=== PATIENT | male | born 1970 | race Caucasian/White ===

== ENCOUNTER 2017-02-07 10:03 | Day surgery (SDC) | payer SELFPAY ==
[2017-02-07 10:29] LABS: #Lymphocytes 1.2 thou/uL (1.20-3.40); #Monocytes 0.8 thou/uL (0.11-0.59); #Neutrophils 6.6 thou/uL (1.40-6.50); %Basophils 0.5 % (0.0-1.0); %Eosinophils 0.3 % (0.0-10.0); %Monocytes 8.7 % (0.0-10.0); Hematocrit 46.1 % (42.0-52.0); Mean Platelet Volume 7.4 fL (7.4-10.4); Red Blood Cell (RBC) Count 4.99 mill/uL (4.70-6.10); White Blood Cell (WBC) Count 8.7 thou/uL (4.8-10.8)
[2017-02-07 10:44] LABS: ALT (SGPT) 23 U/L (8-55); AST (SGOT) 17 U/L (5-34); Alkaline Phosphatase 75 U/L (40-150); Anion Gap 12 mmol/L (10-20); BUN (Urea Nitrogen) 15 mg/dL (8.9-20.6); Bilirubin, Total 1.2 mg/dL (0.2-1.2); Calc. Creatinine Clearance 0 mL/min (70-130); Calcium 9.3 mg/dL (7.8-10.44); Carbon Dioxide 25 mmol/L (22-29); Chloride 106 mmol/L (98-107); Estimated GFR-MDRD 43; Protein, Total 7.2 g/dL (6.0-8.3)
[2017-02-07 10:50] LABS: Lipase Less than 4 U/L (8-78)
[2017-02-07] MEDS ORDERED: Morphine Sulfate 2 MG/ML SYRINGE ONE ×2 (11:09→11:24)
[2017-02-07 12:36] LABS: Bilirubin Negative (Negative); Blood, Urine Small (Negative); Glucose, Urine (Dipstick) Negative (Negative); Ketone, Urine Negative (Negative); Nitrite Negative (Negative); Protein, Urine (Dipstick) Negative (Neg-Trace); Urobilinogen 0.2 mg/dL (0.2-1.0)
[2017-02-07 13:19] LABS: Bacteria/HPF None Seen HPF (None Seen); RBC/HPF 0-3 HPF (0-3); Squamous Epithelial None Seen HPF (0-3); WBC/HPF None Seen HPF (0-3)
--- NOTE | 2017-02-07 14:14 | CT ---
CT ABDOMEN WITH CONTRAST CT PELVIS WITH CONTRAST: DATE: 02/07/2017 HISTORY: A 46-year-old male with right lower quadrant abdominal pain, nausea, emesis, and anorexia. TECHNIQUE: IV injection of iodinated contrast media: Isovue 370. Oral contrast media: Administered. FINDINGS: There is a 7 x 4 x 5 mm calculus lodged in right proximal ureter, at the L3-L4 level, causing mild t o moderate right hydronephrosis. There is a slightly delayed right nephrogram, compared to the left . There are no calculi within the kidneys, or in the urinary bladder. The appendix has mural thick ening, no intraluminal contrast material, and is dilated to 11 mm caliber. However, there is no madelyn appendiceal fat stranding. No extraluminal gas. No signs of acute colonic diverticulitis. No asci gosia. The abdominal aorta , liver, pancreas, adrenals, and spleen are normal. No small bowel dilatio n. Small sliding hiatal hernia. IMPRESSION: 1. Right obstructive uropathy. A 7 mm calculus lodged in the right proximal ureter, causing a ophelia yed right nephrogram and mild to moderate right hydronephrosis. 2. Findings are equivocal for a concomitant acute appendicitis. Followup and clinical correlation are recommended. RIKKI Hernandez POS: JOSETTE
[2017-02-07] MEDS ORDERED: Promethazine HCl 25 MG/ML VIAL ONE (16:18)
[2017-02-07] MEDS ORDERED: Fentanyl 100 MCG/2 ML VIAL ONE (16:18)
[2017-02-07] MEDS ORDERED: Midazolam HCl 2 mg/2 ml Vial ONE (16:18)
[2017-02-07] MEDS ORDERED: Iopamidol 370 76% 100 ML VIAL ONE (16:30)
[2017-02-07] MEDS ORDERED: Iothalamate Meglumine 60% 50 ML VIAL FS ONE ×2 (16:33)
[2017-02-07] MEDS ORDERED: Lidocaine 2% Jelly 5 ML TUBE ONE (16:36)
[2017-02-07] MEDS ORDERED: Propofol 200 MG/20 ML VIAL ONE (17:02)
[2017-02-07] MEDS ORDERED: Ondansetron HCl/PF 4 MG/2 ML Vial ONE (17:02)
[2017-02-07] MEDS ORDERED: Glycopyrrolate 0.2 MG/ML 5 ML SYRINGE ONE (17:02)
[2017-02-07] MEDS ORDERED: Dexamethasone 20 MG/5 ML VIAL ONE (17:02)
[2017-02-07] MEDS ORDERED: Lidocaine 1% PF 5 ML VIAL ONE (17:02)
--- NOTE | 2017-02-07 20:41 | RAD ---
RIGHT RETROGRADE PYELOGRAM: 02/07/17 HISTORY: Stent placement. FINDINGS/IMPRESSION: There is a urinary catheter in the right ureter with tip at the level of L2 level. There is contrast in the pelvicaliceal system and right ureter. There is suggestion of a calculus in the ureter at L2 level medial to the catheter. There is contrast in the right colon. POS: ALMAS
--- NOTE | 2017-02-08 06:12 | CON ---
DATE OF CONSULTATION: 02/07/2017 HISTORY OF PRESENT ILLNESS: This is a 46-year-old white male who I was asked to see today on the , through the emergency room doctor. He has had 4 days of right-sided abdominal and flank p ain, more in the axillary line and flank, has not been able to get comfortable with it, nausea and v omiting associated with it. No fevers, chills. No gross hematuria, no dysuria. He has had stones twice before, the last was 10 years ago. Two years ago, he had a CAT scan done that showed two ston es in his right kidney and none in his ureter and it is possible that he may have passed a stone at that time. This CAT scan shows a 7 mm stone in his proximal ureter with dilated calices above it. There was concern about possible appendicitis, although his white count is normal. He is moving jessica und with this pain and not trying to find a position of comfort. I think his pain is probably most consistent with a stone. ALLERGIES: He has no known drug allergies. MEDICATIONS: He takes vitamins only. PAST SURGICAL HISTORY: Bilateral hernia repair as an . PAST MEDICAL HISTORY: Negative. SOCIAL HISTORY: He does not smoke, does not drink. He is . PHYSICAL EXAMINATION: HEENT: Negative. NECK: Negative. LUNGS: Clear. CARDIAC: Without murmur. ABDOMEN: Soft. There is some mild right-sided abdominal tenderness, without rebound or guarding. He does have right CVA tenderness. EXTREMITIES: Negative. GENITOURINARY: He is circumcised. Testicles descended without mass or tenderness. IMPRESSION: Right proximal ureteral stone with pain in colic, unable to get the patient comfortable in the emergency center. PLAN: Emergent cystoscopy and right stent.
--- NOTE | 2017-02-08 06:52 | OP ---
DATE OF PROCEDURE: 02/07/2017 PREOPERATIVE DIAGNOSIS: Right proximal ureteral stone. POSTOPERATIVE DIAGNOSIS: Right proximal ureteral stone. PROCEDURE PERFORMED: Cystoscopy, right retrograde, right stent. SURGEON: Dr. Llanos. ANESTHETIC: General. ESTIMATED BLOOD LOSS: Not recorded. FINDINGS: There is no evidence of urethral stricture disease, small prostate, bladder with two uret eral orifices. No tumor, foreign body, or stone. Proximal right ureteral stone, could not see the stone on the air pollution compliance inspector film, but there was contrast still hanging up from his prior CT scan. There was also obstruction here to attempted passage with a guidewire, requiring an angle tipped Glidewire. DRAINS PLACED: Six 26 Polaris double-J stent without a string attached. PROCEDURE IN DETAIL: After obtaining written and verbal consent from the patient, after receiving I V Ancef, he was taken to the operating suite. He was placed in the supine position on the treatment table. PlexiPulses were placed on his lower extremities and turned on. He was given a general ane sthetic, oral obturator intubation. He was placed in the dorsal lithotomy position and sterilely pr epped and draped. Cystoscopy was performed with a 22 Afghan sheath. This was well lubricated and p assed under direct vision through the male urethra and into the urinary bladder with the aid of 30-d egree lens and video camera and monitor. The bladder was examined with 30 and 70 degree lens with t he findings above. A 5 Afghan Pollack catheter was flushed with contrast and placed in the right ur eteral orifice. A air pollution compliance inspector KUB was taken. Contrast injected in a retrograde manner showing a normal u reter up to the point of obstruction. Guidewire passed up to this point would not go by it. We bro ught in an angle tipped Glidewire, worked this by it, and then passed the open-ended catheter past t he stone into the dilated collecting system over the Glidewire, drained out some bloody urine, not p urulent however. Replaced this with a normal 0.038 guidewire, removed the open-ended catheter and p laced a stent and pushed into place with the aid of a pusher, so it coiled in the renal pelvis proxi louise and coiled in the bladder distally when the wire was removed. The instruments were removed. The patient was taken out of dorsal lithotomy position, awakened, extubated, and taken by stretcher to the recovery room.
== END 2017-02-07 19:44 | disposition home or self-care (01) ==
LOC: SCSER 10:03 → SDC 14:29 → SDC/OP 19:44
PROVIDERS: ATTEND Urology
PROC: 0T768DZ Dilation of Right Ureter with Intraluminal Device, Via Natural or Artificial Opening Endoscopic (ICD-10-PCS; principal; 2017-02-07)
DX: N20.1 Calculus of ureter (principal); Z79.899 Other long term (current) drug therapy; Z98.890 Other specified postprocedural states; Z87.442 Personal history of urinary calculi
CPT/HCPCS: 74177; 74420; 80053; 81003; 81015; 83690; 85025; C1758; C1769; J1100; J1170; J2001; J2250; J2270; J2405; J2550; J2704; J3010; Q9961

== ENCOUNTER 2017-02-16 08:56 | Day surgery (SDC) | payer OTHER, SELFPAY ==
[2017-02-16] MEDS ORDERED: cefTRIAXone\\ROCEPHIN 2 GM in Sodium Chloride 0.9% 100 ML IVPB SCH (09:30)
[2017-02-16] MEDS ORDERED: Fentanyl 100 MCG/2 ML VIAL ONE ×4 (10:24→13:43)
[2017-02-16] MEDS ORDERED: Iothalamate Meglumine 60% 50 ML VIAL FS ONE (12:18)
[2017-02-16] MEDS ORDERED: Metoclopramide HCl 10 MG/2 ML VIAL ONE (12:41)
[2017-02-16] MEDS ORDERED: Lidocaine 1% PF 5 ML VIAL ONE (12:41)
[2017-02-16] MEDS ORDERED: Propofol 200 MG/20 ML VIAL ONE (12:41)
[2017-02-16] MEDS ORDERED: Ondansetron HCl/PF 4 MG/2 ML Vial ONE (12:41)
[2017-02-16] MEDS ORDERED: Dexamethasone 20 MG/5 ML VIAL ONE (12:41)
--- NOTE | 2017-02-16 15:44 | RAD ---
RETROGRADE IVP: Comparison: 02-07-17 Fluoro time: 1.18 minutes. FINDINGS: Intraprocedure fluoroscopy was provided for Dr. Mack. A total of three images demonstrate retrogra de opacification of the right intra and extrarenal collecting system. Ureteral stent is identified. Evaluation of the proximal pigtail shows that it is in the renal pelvis. The distal pigtail is exclu ded. IMPRESSION: Fluoroscopy as above. POS: JOSETTE
--- NOTE | 2017-02-16 19:02 | OP ---
DATE OF PROCEDURE: 02/16/2017 PREOPERATIVE DIAGNOSIS: Right proximal ureteral stone. POSTOPERATIVE DIAGNOSIS: Right proximal ureteral stone. PROCEDURE PERFORMED: Cystoscopy, removal of right stent, right rigid ureteroscopy, laser lithotrips y, stone retrieval, and stent placement with retrograde. SURGEON: Dr. Rory Llanos ANESTHETIC: General. ESTIMATED BLOOD LOSS: Minimal. FINDINGS: There is a 7 mm right proximal ureteral stone adjacent to his indwelling stent. OPERATIVE TECHNIQUE: After obtaining written and verbal consent from the patient after receiving IV antibiotics, he was taken to the operating suite. He was placed in the supine position on the brodie tment table. PlexiPulses were placed on his lower extremities and turned on. He was given a genera l anesthetic and oral obturator intubation. He was then placed in the dorsal lithotomy position and sterilely prepped and draped. A rhythmic gymnastics coach KUB was taken with the fluoroscopy unit. The stone was stil l in the proximal ureter adjacent to the stent. Cystoscopy was performed with a 22-Lebanese sheath. This was well lubricated and passed under direct vision through the male urethra and into the urinar y bladder with the aid of a 30 degree lens and a video camera and monitor. The bladder was filled a nd emptied number of times. The distal end of the double-J stent was grasped with a pair of flexibl e grasping forceps and delivered out through the urethral meatus. A 0.038 guidewire was fed through this and up into the area of the renal pelvis. A second guidewire was then fed up on this side usi ng a dual-lumen catheter. We then went in over one of these wires with the rigid ureteroscope and f ollowed it in through the male urethra into the bladder and up the right ureter and up to the level of the stone. This wire was then removed. We then brought in the 200 mcg Holmium laser fiber and u sed this to break up and the stone into tiny pieces, leaving just one sizable piece remained that wa s basketed with a nitinol basket and removed intact. Repeat ureteroscopy done again over a second g uidewire that was placed up through the ureteroscope after it was passed by the distal ureter showed no further stones. This wire was removed as the scope was backed out. We then backloaded the cyst oscope with the wire placed a 5-Lebanese Pollack catheter up into the area of the renal pelvis, remove d the wire and injected about 7 mL of contrast that showed no extravasation, no persistent filling d efect along the course of the entire ureter and upper collecting system. The wire was replaced thro ugh the open-ended catheter and a 4.8 x 26 cm double-J stent was passed over the guidewire and pushe d up into place with aid of a pusher so its proximal end coiled in the renal pelvis and its distal e nd coiled in the bladder when the wire was removed. The bladder was drained, the instruments were r emoved. The string was left attached to the distal end of the stent coming out of the urethral meat us. The patient was awakened, extubated, and taken by stretcher to the recovery room.
== END 2017-02-16 15:47 | disposition home or self-care (01) ==
LOC: SDC 08:56
PROVIDERS: ATTEND Urology
PROC: BT1DYZZ Fluoroscopy of Right Kidney, Ureter and Bladder using Other Contrast (ICD-10-PCS; principal; 2017-02-16)
PROC: 0TC68ZZ Extirpation of Matter from Right Ureter, Via Natural or Artificial Opening Endoscopic (ICD-10-PCS; principal; 2017-02-16)
PROC: 0TPD8DZ Removal of Intraluminal Device from Urethra, Via Natural or Artificial Opening Endoscopic (ICD-10-PCS; principal; 2017-02-16)
PROC: 0TF68ZZ Fragmentation in Right Ureter, Via Natural or Artificial Opening Endoscopic (ICD-10-PCS; principal; 2017-02-16)
PROC: 0T768DZ Dilation of Right Ureter with Intraluminal Device, Via Natural or Artificial Opening Endoscopic (ICD-10-PCS; principal; 2017-02-16)
DX: N20.1 Calculus of ureter (principal); Z79.2 Long term (current) use of antibiotics; Z79.899 Other long term (current) drug therapy; Z96.0 Presence of urogenital implants; Z98.890 Other specified postprocedural states
CPT/HCPCS: 74420; 82365; 88300; C1758; J0696; J1100; J2001; J2405; J2704; J2765; J3010; J7050; Q9961